=== PATIENT | male | born 1980 | race Caucasian/White ===

== ENCOUNTER → 2021-03-07 | Day surgery (SDC) | payer OTHER ==
[~2021-03-07] MED LIST: ATORVASTATIN CA80 MG PO; CHOL500021 PO; DICL1TAB50 PO; FLUT30CR5 TP; LISI40TA6 PO; LORA-52 PO; TRAM50TA PO; VENL-109 PO
[2021-03-07 13:53] VITALS: BP 141/83
== END ==
LOC: SURG 13:30
PROVIDERS: ATTEND Anesthesiology
DX: M47.26 Other spondylosis with radiculopathy, lumbar region (principal); M47.812 Spondylosis without myelopathy or radiculopathy, cervical region; M25.50 Pain in unspecified joint; I10 Essential (primary) hypertension; E78.5 Hyperlipidemia, unspecified; Z79.899 Other long term (current) drug therapy
CPT/HCPCS: 99203; G0463